=== PATIENT | male | born 1995 | race Caucasian/White ===

== ENCOUNTER 2020-01-04 13:49 | Inpatient (IN) ==
[2020-01-04] MEDS ORDERED: SENOKOT PO PRN (17:44)
[2020-01-04] MEDS ORDERED: SINEMET 25/100 PO PRN (17:44)
[2020-01-04] MEDS ORDERED: ZOFRAN IV PRN (17:44)
[2020-01-04] MEDS ORDERED: DESYREL PO PRN (17:44)
[2020-01-04] MEDS ORDERED: ROBAXIN PO PRN (17:44)
[2020-01-04] MEDS ORDERED: MOTRIN PO PRN (17:44)
[2020-01-04] MEDS ORDERED: TYLENOL PO PRN (17:44)
[2020-01-04] MEDS ORDERED: TUBERSOL ID ONE (17:44)
[2020-01-04] MEDS ORDERED: ATARAX PO PRN (17:44)
[2020-01-04] MEDS ORDERED: SEROQUEL PO PRN (17:44)
[2020-01-04] MEDS ORDERED: IMODIUM PO PRN (17:44)
[2020-01-04] MEDS ORDERED: PHENOBARBITAL IV PRN (17:44)
[2020-01-04] MEDS ORDERED: MAALOX PLUS LIQUID PO PRN (17:44)
[2020-01-04] MEDS ORDERED: D5W 1,000 ML IV PRN (17:44)
[2020-01-04] MEDS ORDERED: DULCOLAX PR PRN (17:44)
[2020-01-04] MEDS ORDERED: LIBRIUM PO PRN (17:44)
[2020-01-04] MEDS ORDERED: NICODERM PATCH TD PRN (17:44)
[2020-01-04] MEDS ORDERED: BENTYL PO PRN (17:44)
[2020-01-04] MEDS ORDERED: ZOFRAN ODT PO PRN (17:44)
[2020-01-04] MEDS ORDERED: LIBRIUM PO SCH (17:45)
[2020-01-04] MEDS ORDERED: SUBUTEX SL ONE (17:46)
--- NOTE | 2020-01-05 01:05 | HISTORY AND PHYSICAL ---
CHIEF COMPLAINT: Nausea, vomiting. HISTORY OF PRESENT ILLNESS: The patient is a 24-year-old male who is quite recalcitrant to help currently. He is refusing to answer questions. [*] SOCIAL HISTORY: Patient is a 24. Lives at home, currently unemployed, lives in [place]. PAST MEDICAL HISTORY: Significant for drug-induced bipolar, history of blackouts that are drug- related. MEDICATIONS: None. ALLERGIES: None. REVIEW OF SYSTEMS: CINA score is 22 secondary to agitation, anxiety, sniffing, sneezing, watery eyes, runny nose, abdominal cramping, fidgeting, tremors, nausea, vomiting, diarrhea. Denies constipation, melena, hematochezia. Denies dysuria, frequency, urgency. Denies polyuria or polydipsia. Denies skin rashes, weight loss, weight gain. SUBSTANCE ABUSE HISTORY: The patient was in [place] in 2016 for 18 days, stayed sober for 10 months. Again was in [place] in November 2017 for 20 days, stayed sober for 10 months. In April of 2019, was at [facility] for [facility] days, relapsed almost immediately. Notes that substance abuse has caused relationship problems, financial problems, work problems. He has states he does not want to be here, only here because his Mom was making him. He started marijuana at 15. Started opiates at 15, currently is using heroin daily. Started smoking at 21, currently smokes a pack a day or vapes or uses Juul. FAMILY HISTORY: Noncontributory. PHYSICAL EXAMINATION: GENERAL: Patient is awake, alert. He is in no distress. He is quite recalcitrant to answer questions. HEENT: Normocephalic. NECK: Supple. CARDIOVASCULAR: Regular rate. CHEST: Clear, nonlabored. ABDOMEN: Soft, nontender. EXTREMITIES: Moves all extremities. NEUROLOGIC: No focal changes. ASSESSMENT: 1. Nausea and vomiting. 2. Abdominal pain. 3. Myalgias. 4. Paresthesias. 5. Paroxysmal sweating. 6. Opiate abuse withdrawal and stabilization 7. Chronic tobacco abuse. PLAN: We are going to continue patient in the hospital, hopefully. He is threatening to leave AMA. If he does stay we are going to place him on a Librium taper. Will cosmetic counselor as he allows and will follow. cc: Virgil Chiu MD
[2020-01-05] MEDS ORDERED: PROTONIX PO SCH (07:00)
[2020-01-05] MEDS ORDERED: FOLIC ACID PO SCH (09:00)
[2020-01-05] MEDS ORDERED: THERA M PLUS PO SCH (09:00)
[2020-01-05] MEDS ORDERED: VITAMIN B-1 PO SCH (09:00)
--- NOTE | 2020-01-06 00:05 | DISCHARGE SUMMARY ---
ADMISSION DATE: 01/04/2020 DISCHARGE DATE: 01/04/2020 Shortly after the patient was admitted, he refused to the stay in the hospital and receive any treatment, refused even to allow us to get vital signs and he decided to leave AMA. No discharge planning instructions or care were able to be performed as he refused to allow us to [*] cc: Virgil Cihu MD
== END 2020-01-04 17:00 | disposition left against medical advice (07) | DRG 894 ==
LOC: P.DIRADM 16:40 → P.MEDSURG 16:45
PROVIDERS: ADMIT Family Medicine; ATTEND Family Medicine